=== PATIENT | female | born 1955 | race Caucasian/White ===

== ENCOUNTER 2020-01-15 09:06 | Outpatient (REF) | payer OTHER, SELFPAY ==
[2020-01-15 21:40] LABS: ALT 29 U/L (14-59); AST 20 U/L (15-37); Albumin 3.8 g/dL (3.4-5.0); Alkaline Phosphatase 77 U/L (46-116); Anion Gap 3.6 mmol/L (3-11); BUN 25 mg/dL (7-18); Bilirubin, Total 0.4 mg/dL (0.2-1.0); CO2 30.4 mmol/L (21.0-32.0); CREATININE 0.69 mg/dL (0.55-1.02); Calcium 8.6 mg/dL (8.5-10.1); Calculated LDL 137 mg/dL (<100); Chloride 104 mmol/L (98-107); Cholesterol 230 mg/dL (<200); Glucose 91 mg/dL (74-106); HCT 41.9 % (36.0-46.0); HDL Cholesterol 77 mg/dL (40-60); HGB 13.5 g/dL (11.2-15.7); MCH 31.5 pg (27.0-33.0); MCHC 32.2 % (32.0-36.0); MCV 97.7 fL (80-95); MPV 10.6 fL (8.0-11.0); Platelet Count 229 10^3/uL (130-400); Potassium 4.4 mmol/L (3.5-5.1); RBC 4.29 10^6/uL (3.93-5.22); RDW 11.8 % (11.7-14.6); RDW-SD 42.5 fL; Sodium 138 mmol/L (136-145); Total Protein 6.5 g/dL (6.4-8.2); Triglyceride 81 mg/dL (<150); WBC 4.34 10^3/uL (4.4-10.8)
== END 2020-01-15 09:26 ==
LOC: NCHCN 09:06
PROVIDERS: Visit Provider Family Medicine
DX: C50.919 Malignant neoplasm of unspecified site of unspecified female breast (principal); E78.89 Other lipoprotein metabolism disorders; R79.89 Other specified abnormal findings of blood chemistry
CPT/HCPCS: 80053; 80061; 85027

== ENCOUNTER 2020-01-16 12:48 | Outpatient (REF) | payer OTHER, SELFPAY ==
--- NOTE | 2020-01-16 10:00 | PAPFT_PTH ---
PATIENT: Charito Vargas LOC: [facility] U#:[id number] AGE/SX: 65/F ROOM: RE01/16/[address]: Renita Collazo : 1955 BED: DIS: 01/16/2020 SPEC #: [id number] RECD: 01/17/20 12:58 STATUS: ISSAC REQ #: [id number] JESSICA: 01/16/20 10:[address]: Renita Collazo DEPT: [facility] Cytology RECD BY: Morelia Hansen Tissues: 1 - CX/ENDOCX FOR PAP SMEARS Procedures: PAP THIN PREP/UVM Screening HPV DNA PROBE Comments: [id number]
== END 2020-01-16 13:08 ==
LOC: NCHCN 12:48
PROVIDERS: PCP Family Medicine; Visit Provider Family Medicine
DX: Z12.4 Encounter for screening for malignant neoplasm of cervix (principal); Z11.51 Encounter for screening for human papillomavirus (HPV)
CPT/HCPCS: 88142; 87624

== ENCOUNTER 2020-06-04 16:51 | Outpatient (REF) | payer OTHER, SELFPAY | END 2020-06-04 17:11 | LOC: NCHCN 16:51 | PROVIDERS: PCP Family Medicine; Visit Provider Nurse Practitioner Family | DX: R32 Unspecified urinary incontinence (principal) | CPT/HCPCS: 87086 ==

== ENCOUNTER 2020-06-05 15:25 | Outpatient (REF) | payer OTHER, SELFPAY ==
[2020-06-05 13:41] LABS: Bilirubin Negative (Negative); Blood Negative (Negative); Clarity Clear (Clear); Glucose Negative (Negative); Ketones Negative (Negative); Leukocyte Esterase Negative (Negative); Nitrite Negative (Negative); Specific Gravity 1.025 (1.005-1.025); Urobilinogen 0.2 EU/dL (Up TO 0.2)
== END 2020-06-05 15:45 ==
LOC: NCHCN 15:25
PROVIDERS: PCP Family Medicine; Visit Provider Nurse Practitioner Family
DX: R32 Unspecified urinary incontinence (principal)
CPT/HCPCS: 81003; 87480; 87510; 87660

== ENCOUNTER 2021-04-05 16:27 | Outpatient (REF) | payer OTHER, SELFPAY ==
--- NOTE | 2021-04-05 13:58 | PAPFT_PTH ---
PATIENT: Charito Vargas LOC: [facility] #:[id number] AGE/SX: 66/F ROOM: RE04/05/[address]: Renita Collazo : 1955 BED: DIS: 04/05/2021 SPEC #: [id number] RECD: 04/06/21 13:01 STATUS: ISSAC SOTELO #: [id number] JESSICA: 04/05/21 13:[address]: Renita Collazo DEPT: [facility] Cytology RECD BY: Morelia Hansen Tissues: 1 - CX/ENDOCX FOR PAP SMEARS Procedures: PAP THIN PREP/UVM Screening HPV DNA PROBE Comments: [id number]
[2021-04-05 21:40] LABS: Absolute Basophil Count 0.03 10^3/uL (0.0-0.2); Absolute Eosinophil Count 0.06 10^3/uL (0.0-0.7); Absolute Lymphocyte Count 2.01 10^3/uL (1.2-3.4); Absolute Monocyte Count 0.31 10^3/uL (0.1-0.8); Absolute Neutrophil Count 3.28 10^3/uL (1.2-6.7); Basophils % 0.5; Eosinophils % 1.1; HCT 40.9 % (36.0-46.0); HGB 13.1 g/dL (11.2-15.7); Lymphocytes % 35.3; MCV 96.7 fL (80-95); MPV 10.1 fL (8.0-11.0); Monocytes % 5.4; Neutrophils % 57.7; Nucleated RBC 0 %; Platelet Count 210 10^3/uL (130-400); RBC 4.23 10^6/uL (3.93-5.22); RDW 11.5 % (11.7-14.6); RDW-SD 41.1 fL; WBC 5.69 10^3/uL (4.4-10.8)
[2021-04-05 22:23] LABS: ALT 24 U/L (14-59); AST 18 U/L (15-37); Albumin 3.9 g/dL (3.4-5.0); Alkaline Phosphatase 63 U/L (46-116); BUN 28 mg/dL (7-18); Bilirubin, Total 0.4 mg/dL (0.2-1.0); CREATININE 0.7 mg/dL (0.55-1.02); Calcium 8.7 mg/dL (8.5-10.1); Calculated LDL 159 mg/dL (<100); Chloride 105 mmol/L (98-107); Cholesterol 260 mg/dL (<200); Glucose 86 mg/dL (74-106); HDL Cholesterol 81 mg/dL (40-60); Potassium 3.7 mmol/L (3.5-5.1); Sodium 142 mmol/L (136-145); Total Protein 6.7 g/dL (6.4-8.2); Triglyceride 100 mg/dL (<150); Vitamin B12 239 pg/mL (193-986)
== END 2021-04-05 16:28 | disposition home or self-care (01) ==
LOC: NCHCN 16:27
PROVIDERS: PCP Family Medicine; Visit Provider Family Medicine
DX: E78.5 Hyperlipidemia, unspecified (principal); Z12.4 Encounter for screening for malignant neoplasm of cervix; Z00.00 Encounter for general adult medical examination without abnormal findings; Z11.51 Encounter for screening for human papillomavirus (HPV)
CPT/HCPCS: 80053; 80061; 88142; 82607; 85025; 87624

== ENCOUNTER 2023-06-13 11:22 | Outpatient (REF) | payer MEDICARE, SELFPAY ==
[2023-06-13 16:17] LABS: ALT 33 U/L (14-59); AST 25 U/L (15-37); Albumin 3.7 g/dL (3.4-5.0); Alkaline Phosphatase 64 U/L (46-116); Anion Gap 4.8 mmol/L (3-11); BUN 23 mg/dL (7-18); Bilirubin, Total 0.6 mg/dL (0.2-1.0); CO2 31.2 mmol/L (21.0-32.0); CREATININE 0.8 mg/dL (0.55-1.02); Calcium 9.3 mg/dL (8.5-10.1); Calculated LDL 82 mg/dL (<100); Chloride 106 mmol/L (98-107); Cholesterol 160 mg/dL (<200); Estimated GFR 79.71 (mL/min/1.73m2); Glucose 100 mg/dL (74-106); HDL Cholesterol 68 mg/dL (40-60); Sodium 142 mmol/L (136-145); Total Protein 6.6 g/dL (6.4-8.2); Triglyceride 54 mg/dL (<150)
[2023-06-13 17:03] LABS: Vitamin D 25 Total 41.8 ng/mL (30-100)
== END 2023-06-13 11:23 | disposition home or self-care (01) ==
LOC: NCHCN 11:22
PROVIDERS: PCP Family Medicine; Visit Provider Family Medicine
DX: E78.5 Hyperlipidemia, unspecified (principal); M81.0 Age-related osteoporosis without current pathological fracture
CPT/HCPCS: 80053; 80061; 82306

== ENCOUNTER 2024-03-04 15:17 | Outpatient (REF) | payer MEDICARE, SELFPAY ==
[2024-03-04 16:30] LABS: Abs Immature Grans 0.01 10^3/uL (0.0-0.06); Absolute Basophil Count 0.03 10^3/uL (0.0-0.2); Absolute Eosinophil Count 0.04 10^3/uL (0.0-0.7); Absolute Lymphocyte Count 1.56 10^3/uL (1.2-3.4); Absolute Monocyte Count 0.36 10^3/uL (0.1-0.8); Absolute Neutrophil Count 3.96 10^3/uL (1.2-6.7); Basophils % 0.5 %; Eosinophils % 0.7 %; HCT 42.2 % (36.0-46.0); HGB 13.6 g/dL (11.2-15.7); Immature Grans % 0.2 %; Lymphocytes % 26.2 %; MCH 31.4 pg (27.0-33.0); MCHC 32.2 % (32.0-36.0); MCV 98 fL (80-95); MPV 10.7 fL (8.0-11.0); Neutrophils % 66.4 %; Platelet Count 224 10^3/uL (130-400); RBC 4.33 10^6/uL (3.93-5.22); RDW 12.2 % (11.7-14.6); RDW-SD 44.1 fL; WBC 5.96 10^3/uL (4.4-10.8)
[2024-03-04 17:15] LABS: Anion Gap 9.8 mmol/L (3-11); BUN 26 mg/dL (7-18); CO2 30.2 mmol/L (21.0-32.0); CREATININE 0.8 mg/dL (0.55-1.02); Calcium 9.5 mg/dL (8.5-10.1); Chloride 106 mmol/L (98-107); Estimated GFR 79.22 (mL/min/1.73m2); Glucose 134 mg/dL (74-106); Magnesium 2.3 mg/dL (1.8-2.4); Potassium 4.3 mmol/L (3.5-5.1); Sodium 146 mmol/L (136-145); TSH (W/Ref FT4) 1.42 uIU/mL (0.36-3.74)
== END 2024-03-04 15:18 | disposition home or self-care (01) ==
LOC: NCHCN 15:17
PROVIDERS: PCP Family Medicine; Visit Provider Nurse Practitioner Family
DX: R42 Dizziness and giddiness (principal)
CPT/HCPCS: 80048; 83735; 84443; 85025

== ENCOUNTER 2024-06-20 10:00 | Outpatient (REF) | payer MEDICARE, SELFPAY ==
[2024-06-20 23:31] LABS: ALT 27 U/L (14-59); AST 20 U/L (15-37); Alkaline Phosphatase 81 U/L (46-116); Anion Gap 5.9 mmol/L (3-11); BUN 26 mg/dL (7-18); Bilirubin, Total 0.52 mg/dL (0.2-1.0); CO2 29.1 mmol/L (21.0-32.0); CREATININE 0.8 mg/dL (0.55-1.02); Calcium 9.3 mg/dL (8.5-10.1); Calculated LDL 89 mg/dL (<100); Chloride 106 mmol/L (98-107); Cholesterol 192 mg/dL (<200); Estimated GFR 79.22 (mL/min/1.73m2); Glucose 101 mg/dL (74-106); HDL Cholesterol 94 mg/dL (40-60); Potassium 4.7 mmol/L (3.5-5.1); Sodium 141 mmol/L (136-145); Total Protein 6.9 g/dL (6.4-8.2); Triglyceride 48 mg/dL (<150); Vitamin D 25 Total 29.3 ng/mL (30-100)
== END 2024-06-20 10:01 | disposition home or self-care (01) ==
LOC: NCHCN 10:00
PROVIDERS: PCP Family Medicine; Visit Provider Family Medicine
DX: E78.5 Hyperlipidemia, unspecified (principal); E55.9 Vitamin D deficiency, unspecified
CPT/HCPCS: 80053; 80061; 82306

== ENCOUNTER → 2024-11-06 09:21 | Outpatient (BNVA) | payer MEDICARE, SELFPAY | PROVIDERS: PCP Family Medicine; Referring Provider Family Medicine; Visit Provider Surgery | DX: Z12.11 Encounter for screening for malignant neoplasm of colon (principal); Z86.0102 Personal history of hyperplastic colon polyps | CPT/HCPCS: S0285 ==

== ENCOUNTER 2024-11-21 07:14 | Day surgery (SDC) | payer MEDICARE, SELFPAY ==
[2024-11-21 07:57] VITALS: BP 117/78; PULSE 96; RESP 18; TEMP 36.2; O2SAT 99
[2024-11-21] MEDS: Lactated Ringers 1,000 ML 80 ML IV (08:21)
--- NOTE | 2024-11-21 08:52 | W.ANESPRE ---
General Info Date of Service Date Performed: 11/21/24 Height: 5 ft 2 in Weight: 56.5 kg Body Mass Index (BMI): 22.8 Surgical Procedure: Operation Date: 11/21/24 09:35 Proposed Procedure Side Surgeon p Colonoscopy Naheed Small MD Meds Allergies and Home Medications Allergies Allergy/AdvReac Type Severity Reaction Status Date / Time erythromycin base AdvReac Severe hives Verified 11/21/24 07:53 Home Medication ?Medication ?Instructions ?Recorded calcium carbonate (Calcium 600) 600 mg PO DAILY 06/17/20 cholecalciferol (vitamin D3) 50 50 mcg PO DAILY 06/17/20 mcg (2,000 unit) capsule atorvastatin 40 mg tablet (Lipitor) 40 mg PO QHS 10/29/24 bisacodyl 5 mg tablet,delayed 5 mg PO ONCE colonscopy bowel prep 11/06/24 release (Dulcolax (bisacodyl)) #4 tabs polyethylene glycol 3350 17 238 g PO ONCE colonoscopy prep 11/06/24 gram/dose oral powder #238 grams Current Visit Medications: Current Medications Generic Name Dose Route Start Last Admin Trade Name Freq PRN Reason Stop Dose Admin Ringer's Solution 1,000 mls @ 80 mls/hr 11/21/24 06:00 11/21/24 08:21 IV 11/21/24 23:59 80 mls/hr INFUSION MAUREEN Administration IV Miscellaneous Supplies 1 each 11/21/24 06:00 Iv Access IV 11/21/24 23:59 DIRECTED AMUREEN Sodium Biphosphate/Sodium Phosphate 133 ml 11/21/24 06:00 Na Phosphate Enema-Adult 133 Ml Btl TN 11/21/24 23:59 ONCE PRN Sodium Chloride 0 ml 11/21/24 06:00 Normal Saline Flush 10 Ml Syr IV 11/21/24 23:59 PRN PRN Sodium Chloride 0 ml 11/21/24 06:00 Normal Saline 10 Ml Vial IJ 11/21/24 23:59 DIRECTED PRN Sterile Water 0 ml 11/21/24 06:00 Water,Injection,Sterile 10 Ml Vial IJ 11/21/24 23:59 DIRECTED PRN PFSH Active Problems Active Problems: Problem Status Onset Code Hyperlipidemia Acute E78.5 Vitamin D deficiency Acute E55.9 Postmenopausal atrophic vaginitis Acute N95.2 Urinary leakage Acute R32 History of breast biopsy Acute Z98.890 History of cancer of right breast Acute Z85.3 Medical History Medical History Hyperplastic colon polyp (~03/09/15) Dizziness Senile osteoporosis Foot pain Lesion of skin of face Multiple skin tags Acute gingival disease Surgical History Surgical History History of colonoscopy with polypectomy (~03/09/15) Formerly [facility] History of right mastectomy Tobacco Smoking/Tobacco Use Status: Never Passive smoking exposure: Yes Alcohol Alcohol Intake: current Alcohol intake frequency: 0-2 drinks per day Alcohol type: wine Substance Use Substance use: Never Substance use type: does not use Vital Signs and Lab Results Vital Signs Most Recent Vital Signs in EMR: Most Recent Vital Signs Temp Pulse Resp BP Pulse Ox 36.2 C L 96 H 18 117/78 99 11/21/24 07:57 11/21/24 07:57 11/21/24 07:57 11/21/24 07:57 11/21/24 07:57 Anesthesia Assessment and Plan Anesthesia History Personal History: No History of Anesthesia Complications Family History: No Family History of Anesthesia Complications Exercise Tolerance Exercise Tolerance: Metabolic Equivalents>4 Pertinent Negatives Pertinent Negatives: No Symptoms of GERD, No Major Cardiovascular Symptoms or Complaints, No Major Pulmonary Symptoms or Complaints and No History of CVA/TIA Cardiac & Pulmonary Exam Cardiac Exam: Normal S1/S2 Heart Sounds Pulmonary Exam: Clear Bilateral Breath Sounds Implantable Cardiac Device Does patient have a Pacemaker or an ICD?: No Airway Exam Known Difficult Airway: No Mallampati Class: 1 Mouth Opening: Normal (> 3cm) Thyromental Distance: Greater than 3 cm Neck Range of Motion: Full ROM Neck Circumference: Normal Teeth Condition: Normal Dentition ASA Classification ASA Score: ASA 2 Emergency Case?: No NPO Status NPO Status: NPO Clears >2 hours, Solids >8 hours Anesthesia Plan Resuscitation Status: Full Code Anesthesia Technique: General Anesthesia Airway Planned: Natural Airway Monitors Used: Standard Monitors
[2024-11-21 08:54] VITALS: BMI 22.8
--- NOTE | 2024-11-21 09:53 | W.COLOREPORT ---
Date of service: 11/21/24 Time of Service: 09:53 Colonoscopy Report Date of procedure: 11/21/24 Pre-op diagnosis general: screening for colorectal cancer Post-op diagnosis procedure note: same Procedure: Screening colonoscopy Surgeon: Naheed Small Anesthesia Type: MAC Estimated blood loss (mL): 0 Pathology: none sent Complications: None Disposition: same day Prep: Miralax/Dulcolax Procedure Description: 69-year-old female here for routine screening colonoscopy. Informed consent was obtained and the patient was taken to the procedure area. She was placed in left lateral decubitus position on the procedure table. Timeout was performed. Anesthesia was induced. The colonoscope was inserted through the anus and passed to the cecum. The cecum was identified by the ileocecal valve and the appendiceal orifice. The scope was then slowly withdrawn and the colonic mucosa and rectal mucosa examined. The colon was tortuous and abdominal counterpressure was required to pass into the cecum. There are no colon or rectal mass lesions, polyps, diverticula, AVMs. There is no inflammatory change. The scope was retroflexed in the anorectal junction examined. There are grade 3 internal hemorrhoids with tags and external hemorrhoids present without complication. Assessment and plan; Normal screening colonoscopy and an average risk patient. Next screening colonoscopy will be due in 10 years.
--- NOTE | 2024-11-21 09:58 | W.PM.DSUDISC ---
Date of service: 11/21/24 Discharge Plan Disposition Patient Disposition: Home Condition: Stable Discharge Details Reason For Visit: screening colonoscopy Attending Provider: Naheed Small Primary Care Provider: Renita Collazo Recommendations for Follow Up Recommended tests to be ordered by follow up provider: Next screening colonoscopy due in 10 years. Home Meds and New Rx's Prescriptions: No Action bisacodyl [Dulcolax (bisacodyl)] 5 mg tablet,delayed release (DR/EC) 5 mg PO ONCE Qty: 4 0RF Rx Instructions: take per colonoscopy instructions polyethylene glycol 3350 17 gram/dose powder 238 g PO ONCE Qty: 238 0RF Rx Instructions: take per colonoscopy instructions calcium carbonate [Calcium 600] 600 mg calcium (1,500 mg) tablet 600 mg PO DAILY cholecalciferol (vitamin D3) 50 mcg (2,000 unit) capsule 50 mcg PO DAILY atorvastatin [Lipitor] 40 mg tablet 40 mg PO QHS Discharge Instructions Additional Instructions: Normal screening colonoscopy. next colonoscopy due in 10 years. Your prep was excellent. I did not see anything sightseeing. You did not have diverticulosis or other abnormalities of the colon or rectum. Activity:: Activity as Tolerated Diet:: As Tolerated DS: Diagnosis Discharge Diagnosis (1) Encounter for screening colonoscopy: Status: Acute (2) Screening for colorectal cancer: Status: Acute
[2024-11-21 10:05] VITALS: BP 130/80; PULSE 68; RESP 16; TEMP 36.4; O2SAT 98
--- NOTE | 2024-11-21 10:50 | W.ANESPOSTOP ---
Postoperative Evaluation Date, Time and Location Date Performed: 11/21/24 Time Performed: 10:50 Patient Location: Day Surgery Unit Vital Signs Most Recent Imported Vital Signs: Most Recent Vital Signs Temp Pulse Resp BP Pulse Ox 36.4 C L 68 16 130/80 98 11/21/24 10:05 11/21/24 10:05 11/21/24 10:05 11/21/24 10:05 11/21/24 10:05 Pain Score Most Recent Pain Score: Most Recent Pain Score Pain Level 4 11/21/24 10:05 Assessment Mental Status: Awake (Alert & Oriented to Patient Baseline) Airway and Respiratory Function: Patent airway with normal (patient baseline) respiratory exam Cardiovascular Function: Hemodynamically Stable Hydration Status: Adequately Hydrated Nausea & Vomiting: No Nausea or Vomiting Pain: Pain is tolerable per patient (slight upper abdominal gas cramping) Peripheral Nerve Block: Patient did not receive a nerve block
[2024-11-21 11:58] VITALS: BP 125/83; PULSE 58; RESP 17; TEMP 36.7; O2SAT 98
== END 2024-11-21 07:15 | disposition home or self-care (01) ==
PROVIDERS: PCP Family Medicine; Visit Provider Surgery
PROC: 0DJD8ZZ Inspection of Lower Intestinal Tract, Via Natural or Artificial Opening Endoscopic (ICD-10-PCS; CPT 45378; principal; 2024-11-21 09:30)
DX: Z12.11 Encounter for screening for malignant neoplasm of colon (principal); Z12.12 Encounter for screening for malignant neoplasm of rectum; K56.2 Volvulus; K64.8 Other hemorrhoids; K64.4 Residual hemorrhoidal skin tags; Z86.0102 Personal history of hyperplastic colon polyps
CPT/HCPCS: G0105; J2003; J2704